=== PATIENT | female | born 1955 | race Caucasian/White ===

== ENCOUNTER 2020-12-29 22:21 | Emergency (ER) | payer OTHER ==
[~2020-12-29] VITALS: Ht 162.6 cm; Wt 76.7 kg
== END 2020-12-30 00:41 | disposition home or self-care (01) ==
LOC: ED 22:21
DX: U07.1 COVID-19 (principal)
CPT/HCPCS: 71045; 99283-25; C9803; U0003

== ENCOUNTER 2021-01-04 18:26 | Inpatient (IN) | payer OTHER ==
[~2021-01-04] VITALS: Ht 162.6 cm; Wt 77.2 kg
--- OUTSIDE RECORDS SUMMARY | 2021-01-04 18:34 | XMS ---
PreManage Notification: ROSALEE FREEDMAN Security Brand Attendant Events No recent Security Events currently on file CRITERIA MET - [facility] - 2 Visits in 30 Days CARE PROVIDERS There are no care providers on record at this time. Tamir has no Care Guidelines for this patient. [place] [facility] COUNT (12 MO.) [facility] T[facility] NOTE: Visits indicate total known visits. [place].) [facility] 18[facility] COMPLAINT: - FLU SYMPTOMS 12/29/2020 22:22 [facility] [place] TYPE: Emergency COMPLAINT: - COUGH,FEVER DIAGNOSES: - COVID-19 - Cough INPATIENT VISIT TRACKING (12 MO.) No inpatient visits to display in this time frame [id number]
--- NOTE | 2021-01-04 23:27 | NUR ---
pt ARRIVES TO [facility] VIA STRETCHER. RESTING IN BED. pt DENIES PAIN, DENIES NAUSEA AT THIS TIME. ORIENTATION TO ROOM PROVIDED. ASSESSMENT COMPLETE. CRACKLES AUSCULTATED THROUGHOUT LUNG LOBES. EDUCATION PROVIDED FOR PRONING, pt VERBALIZES UNDERSTANDING. IV SITE FLUSHED WNL AND IVF INFUSING ORDERED. OUT OF HOSPITAL AT THIS TIME, INSTRUCTED ON HOPSITAL VISITING POLICY, AGGREABLE, PROVIDED WITH MS BUSINESS CARD. CALL LIGHT PROVIDED TO pt.
--- NOTE | 2021-01-05 00:06 | NUR ---
IN pt ROOM FOR MEDICATION ADMINISTRATION. IV REMDESIVIR INFUSING WNL ORDERED. SBA TO RESTROOM FOR VOID, ATTENDS ON. 2L OXYGEN BY WA NOW IN PLACE. pt BACK IN BED, WEAK, STATES "THAT TOOK A LOT OUT OF ME". GAIT STEADY WITH AMBULATION. LIGHTS OFF IN ROOM. CALL LIGHT IN REACH.
--- NOTE | 2021-01-05 00:57 | NUR ---
SPO2 87-88% WITH 2L OXYGEN BY NC IN PLACE. pt SLEEPING. TITRATED TO 3L OXYGEN BY NC, SPO2 INCREASES TO 91%. BREATHING UNLABORED. pt RESTING ON LEFT SIDE WITH EYES CLOSED.
--- NOTE | 2021-01-05 01:55 | NUR ---
CHECKED ON pt. RESTING IN BED WITH EYES CLOSED, BREATHING UNLABORED. SPO2 92%, HR 75 ON TELE 3.
--- NOTE | 2021-01-05 04:10 | NUR ---
SPO2 85-86% ON TELE 3, pt AWAKENS TO VOICE RN ENTERS ROOM. TITRATED OXYGEN TO 6L BY NC, SPO2 <90, pt ABLE TO PRONE INSTRUCTED, OXYMASK WITH 6L OXYGEN IN PLACE. SPO2 INCREASES TO 92%. ASSESSMENT COMPLETE. CRACKLES AUSCULTATED BILATERALLY IN BASES. VS COMPLETE. CALL LIGHT IN REACH.
--- NOTE | 2021-01-05 06:56 | NUR ---
pt RESTING IN BED, SPO2 93% WITH 6L OXYGEN BY OXYMASK IN PLACE. TOWERMAN SINTA IN ROOM TO ASSESS TOILETING NEEDS.
--- NOTE | 2021-01-05 07:11 | NUR ---
SBA TO THE BATHROOM AND BACK TO BED. NO OTHER NEEDS AT THIS TIME.
--- NOTE | 2021-01-05 07:30 | NUR ---
IN ROOM WITH JOE REYES FOR REPORT AND CHANGE OUT BAG ON IVF. PT LAYING ON BACK INITIALLY AND EXPLAINED THAT SIDE OR PRONE IS THE BEST POSTION FOR VENTILATION. PT MOVED TO PRONE. SATS LOW 90'S ON 6L OXY MASK. DENIES CONCERNS ATT.
--- NOTE | 2021-01-05 08:31 | NUR ---
Got breakfast order. gave warm washcloth to pt to wash her face. updated whiteboard. IV pump was beeping, reported to JOE Motley. gave pt chicken broth, beef broth, orange jello, and apple juice. placed tray over pt. call light was within reach. no further assistance needed.
--- NOTE | 2021-01-05 09:19 | NUR ---
IN ROOM WITH DR ARDON. PT LAYING ON BACK, SATS 86-89. BUMPED UP TO 8L OXY AND SATS IMPROVED TO 91. PT STATES HER COUGH IN MINIMAL AND NONPRODUCTIVE. INTERMINTENT NAUSEA, SLIGHT HEADACHE. ADMINSITERED TYLENOL AND EDUCATED ON LOVENOX. PT AGREED TO SIDE LAY AND ASSISTED TO ROLL. LUNGS HAVE FINE CRACKLES WITH OCCASIONAL WHEEZE.
--- NOTE | 2021-01-05 10:45 | NUR ---
TOOK TOLLIVER INTO ROOM. PT PRONING WITH MASK RESIDENTIAL OFF HER FACE. SATS IN LOW 90'S.
--- NOTE | 2021-01-05 12:00 | NUR ---
Pt lives with spouse in a 1 story home without steps in [place]. Son lives in house up the street. Spouse is covid +, but starting to feel better. Pt states she is extremely active and in good health. Pt states son has been assisting them as needed while they have covid. Pt recently returned to [facility] and does not have pcp. Would like to establish care with [facility]. I will contact. She w would prefer a female and I will request Dr. Tsai. Pt may need to dc with 02 and she would prefer [facility] for her DME. Pt plans to dc to home with spouse and assist from son when cleared by hospitalist.
--- NOTE | 2021-01-05 12:25 | NUR ---
administered scheduled med. pt states she is feeling much better and the tylenol helped a lot. 7L joan sats low 90's
--- NOTE | 2021-01-05 12:53 | NUR ---
MED REC COMPLETE
--- NOTE | 2021-01-05 13:01 | NUR ---
PT SITTING UP IN BED EATING LUNCH. NC IN PLACE FOR EASE OF EATING. SATS 93. PT STATES SHE WILL CALL AFTER SHE IS DONE AND GET UP FOR RESTROOM AND THEN PRONING.
--- NOTE | 2021-01-05 13:08 | NUR ---
FAce sheet H&P faxed to Ana at [facility] requesting appt. for pt to establish care. Pts Pharmacy is [facility].
--- NOTE | 2021-01-05 14:23 | NUR ---
PT LAYING ON SIDE TALKING ON PHONE. DELIVERED MORE TOLLIVER TO ROOM. FIXED TELE STICKERS.
--- NOTE | 2021-01-05 17:17 | NUR ---
PT SITTING UP IN BED EATING DINNER. VS ASSESSED. WILL GET UP TO RESTROOM SOON SHE IS DONE EATING.
--- NOTE | 2021-01-05 18:04 | NUR ---
ASSISTED PT TO THE BSC IN THE RESTROOM HER O2 WILL NOT REACH THE TOILET. PT DENIES SOB, BUT SATS AT 89. TURNED UP TO 8LNC. CHANGED GOWN AND DEPENDS AND BACK INTO BED FOR PRONING. PT TEXTING IN THE ED AND WORRIED ABOUT HIM.
--- NOTE | 2021-01-05 19:30 | NUR ---
REPORT RECEIVED FROM JOE BEVERLY. SPO2 84-86% ON TELE 3. RN RUSH IN ROOM. pt NOW LYING ON SIDE. 8L OXYGEN BY HIGH FLOW NC IN PLAE, SPO2 INCREASES TO 92%. CALL LIGHT IN REACH.
--- NOTE | 2021-01-05 22:04 | NUR ---
RN AND RT IN ROOM. SPO2 85%, BIPAP APPLIED BY RT AT THIS TIME, 80% FI02. SPO2 INCREASES TO MID 90S ON TELE CPOX. ASSESSMENT COMPLETE. pt ASSISTED TO SIDE LYING POSITION. pt DENIES PAIN, DENIES SOB. CALL LIGHT WITHIN REACH. TRAY TABLE CLEARED.
--- NOTE | 2021-01-05 22:50 | NUR ---
CALL LIGHT ANSWERED. BIPAP REMOVED REQUESTED pt NOT TOLERATING STATES "I CANT EVEN WEAR A HELMET WITH THE STRAP ON MY FACE". 10 OXYGEN HIGH FLOW NC APPLIED, SPO2 87%, TITRATED TO 12L 02 HIGH FLOW NC, SPO2 90-91%. pt LYING ON SIDE. TAKING DRINKS OF WATER. DENIES TOILETING NEEDS. IVF INFUSING WNL ORDERED. CALL LIGHT IN REACH. RT NOTIFIED AT THIS TIME.
--- NOTE | 2021-01-06 01:02 | NUR ---
CHECKED ON pt. RESTING IN BED ON SIDE. SPO2 96% WITH 12L OXYGEN BY HIGH FLOW NC IN PLACE, HR 71 ON TELE 3.
--- NOTE | 2021-01-06 02:22 | NUR ---
IN TO CHECK ON pt. LYING ON LEFT SIDE AT THIS TIME. 12 L OXYGEN BY HIGH FLOW NC IN PLACE, SPO2 97%. BREATHING IS UNLABORED. LIGHTS OFF IN ROOM. IVF INFUSING.
--- NOTE | 2021-01-06 05:05 | NUR ---
IN pt ROOM SPO2 79% WITH 12 L OXYGEN BY NC IN PLACE. pt RESTING IN BED, STATES "I JUST SAT UP FOR A SECOND TO HAVE A DRINK OF WATER." ASSISTED TO BSC AND BACK TO BED. SPO2 DROPS TO 69% WITH SHORT AMBULATION TO BSC FOR VOID. pt TITRATED TO 15 L OXYGEN TO MAINTAIN SATURATIONS >90% AND BACK TO 14 L AT THIS TIME, SPO2 90%. RT LILY IN ROOM. NO CRACKLES AUSCULATED, pt COUGHING WITH DEEP BREATHING. DRY COUGH. ASSESSMENT COMPLETE. pt NOW LYING IN PRONE POSITION INSTRUCTED. EYES CLOSED. CALL LIGHT WITHIN REACH. LIGHTS OFF IN ROOM.
--- NOTE | 2021-01-06 05:31 | NUR ---
SPO2 NOW 95% ON 14L OXYGEN BY HIGH FLOW NC ON TELE 3, HR 68. pt CONTINUES TO REST IN PRONE POSITION.
--- NOTE | 2021-01-06 07:35 | NUR ---
SHIFT REPORT FROM AMY DIAZ, PT SIDE LYING ON LEFT SIDE DOING SOMETHING ON CELL PHONE, NO DISTRESS NOTED ON VISUAL. PT IS ON 14L HIGH FLOW OXYGEN SATURATION 93% AT THIS TIME.
--- NOTE | 2021-01-06 08:00 | NUR ---
Received call from Ana at [facility], Dr. Tsai will accept this pt to establish care. Appt. made for January 15 at 3:50pm. Added to dc instructions and Guadalupe updated.
--- NOTE | 2021-01-06 08:57 | NUR ---
PT REPORTS ALL OVER ACHE/PAIN, MOTRIN GIVEN PO PRN AT THIS TIME. V/S STABLE, NO URINE OUT SINCE SHIFT CHANGE. ASSESSMENT COMPLETE PT HAS CRACKLES THROUGHOUT MORE SIGNIFICANT ON LEFT, PT IS SIDE LYING ON THE LEFT SIDE.
--- NOTE | 2021-01-06 09:06 | NUR ---
VAPO THERM INITIATED, UPDATED CHARGE NURSE ON PT NOT VOIDING SINCE SHIFT CHANGE
--- NOTE | 2021-01-06 09:55 | NUR ---
REPORT RECEIVED BY JOE GOMEZ ON PT. WILL CONTINUE PLAN OF CARE WHEN PT ARRIVES TO CCU.
--- NOTE | 2021-01-06 11:00 | NUR ---
PT ARRIVED TO THE CCU AT 1015, PT WAS AWAKE AND ALERT AND ON HIGHFLOW NC. PT BROUGHT VIA BED BY JOE DELAROSA AND 2 JEWEL DIAM[employer]ER GAUGER'S WITH HER BELONGINGS. PT PUT BACK ON VAPOTHERM ONCE SITUATED IN THE ROOM. VAPOTHERM SETTINGS WERE AT 35 LPM FIO2 AT 80%. VITALS TAKEN AT THIS TIME, IV ASSESSED AND WAS PATENT. PT ALERT AND ORIENTED X 3, REPORTS NO NAUSEA, DENIES HAVING PAIN, AND IS AFEBRILE. PT LUNGS ARE COARSE THROUGHOUT WITH CRACKLES PRESENT IN BASES. JOE RODGERS IN TO ASSIST WITH PT AND PLACE A MORALEZ CATHETER 16 FR. URINE RETURN NOTED (SEE CHART). IVF STOPPED AFTERWARDS PER EMAR. PT REPORTS OCCASIONAL SOB AND IS NOTED TO DESATURATE TO 88-89% WHEN DRINKING WATER. LITER FLOW INCREASED TO 40LPM ON VAPOTHERM, FIO2 STILL AT 80%. PT REPOSITIONED IN BED WITH THE HELP OF JOE RODGERS. PT REPORTS NO FURTHER NEEDS AT THIS TIME AND IS NOW SITTING UP SEMI-FOWLERS IN BED AWAKE AND ALERT. WILL CONTINUE PLAN OF CARE. CALL LIGHT IN REACH, BED IN LOWEST POSITION.
--- NOTE | 2021-01-06 11:25 | NUR ---
DR. ARDON UPDATED ON PT, VBG ORDERED, WILL CONTINUE PLAN OF CARE.
--- NOTE | 2021-01-06 12:18 | NUR ---
THIS RN IN TO ASSESS PT, DRAW LABS, AND ADMINISTER ORDERED MEDICATIONS. PT LAYING IN BED ON LEFT SIDE, VAPOTHERM ON AT PREVIOUS SETTINGS 40LPM, 80% FIO2. PT UPDATED ON PLAN OF CARE, IV INSERTION, AND LAB DRAW. 20G IV INSERTED IN RIGHT AC PER PROTOCOL. VBG DRAWN OFF OF NEW IV AND IV SALINE LOCKED PT TOLERATED PROCEDURE WELL. PT SAT UP AT THIS TIME AND ASSESSED. LUNGS COARSE IN UPPER LOBES AND DIMINISHED WITH CRACKLES IN LOWER LOBES BILATERALLY. PT STATES HER BREATHING HAS IMPROVED AND REPORTS NO SHORTNESS OF BREATH, RR AT 20. PT NOW SITTING UP IN BED SEMI-FOWLERS EATING HER LUNCH. SCHEDULED MEDICATION ADMINISTERED AT THIS TIME (SEE AUG). PT REPORTS NO FURTHER NEEDS AT THIS TIME, WILL CONTINUE PLAN OF CARE. CALL LIGHT IN REACH, BED IN LOWEST POSITION.
--- NOTE | 2021-01-06 14:35 | NUR ---
THIS RN IN TO CHECK ON PT. PT LAYING ON RIGHT SIDE RESTING ON THE VAPOTHERM AT 40 LPM, 80% FIO2. SPO2 AT 93-95%. PT ALERT AND ORIENTED AND DENIES SHORTNESS OF BREATH STATING HER BREATHING FEELS BETTER. FIO2 TURNED DOWN FROM 80 TO 75% AT THIS TIME. PT GIVEN WATER PER HER REQUEST AND DINNER ORDERED. PT REPORTS NO FURTHER NEEDS AT THIS TIME, WILL CONTINUE PLAN OF CARE. PT BACK TO A RIGHT SIDE LYING POSITION ON THE BED SPO2 94% ON THE NEW VAPOTHERM SETTINGS. CALL LIGHT IN REACH, BED IN LOWEST POSITION.
--- NOTE | 2021-01-06 16:50 | NUR ---
THIS RN IN TO ASSESS PT AND ADMINISTER SCHEDULED MEDICATION. PT LAYING ON RIGHT SIDE ON VAPOTHERM AT 40LPM, 75% FIO2. PT ALERT AND ORIENTED X 3 AND DENIES HAVING SHORTNESS OF BREATH, PT STATES HER BREATHING HAS SEEMED TO IMPROVE SINCE THE MORNIN. PT FIO2 TURNED DOWN TO 70% AT THIS TIME. SCHEDULED IV MEDICATION NOW INFUSING ORDERED (SEE MAR). PT REPORTS NO FURTHER NEEDS AT THIS TIME WHEN ASKED, WATER PROVIDED TO PT. PT NOW SITTING SEMI-FOWLERS IN BED ON THE PHONE. SPO2 MAINTAINING AT 93%, RR AT 16, WHILE ON 40LPM, 70% FIO2. CALL LIGHT IN REACH, BED IN LOWEST POSITION, WILL CONTINUE PLAN OF CARE.
--- NOTE | 2021-01-06 17:21 | NUR ---
THIS RN IN TO BRING PT HER DINNER. PT ALERT AND ORIENTED AND SAT UP IN BED SEMI-FOWLERS TO EAT. WHILE EATING PT BEGAN TO DESATURATE AND STAYED AT 85%. FIO2 ON VAPOTHERM INCREASED FROM 70% TO 80% TO MAINTAIN SATURATIONS. PT NOW EATING DINNER, SPO2 AT 90%, WILL CONTINUE PLAN OF CARE. PT REPORTS NO FURTHER NEEDS WHEN ASKED. CALL LIGHT IN REACH, BED IN LOWEST POSITION, PT EATING DINNER.
--- NOTE | 2021-01-06 17:50 | NUR ---
THIS RN IN TO SALINE LOCK PT. PT SITTING UP IN BED AWAKE AND ALERT ON VAPOTHERM. PT DENIES HAVING SOB AT THIS TIME, SPO2 94%. VAPOTHERM TURNED BACK DOWN FROM 80% FIO2 TO 70% FIO2. PT VAPOTHERM NOW AT 40LPM, 70% FIO2. PT SPO2 MAINTAINING AT 94%. IV REMDESEVIR COMPLETE, PT SALINE LOCKED. PT REPORTS NO FURTHER NEEDS AT THIS WHEN ASKED, WILL CONTINUE PLAN OF CARE. CALL LIGHT IN REACH, BED IN LOWEST POSITION.
--- NOTE | 2021-01-06 19:45 | NUR ---
RECEIVED REPORT FROM [facility]. pt RESTING IN BED ON RIGHT SIDE. RESPIRATIONS REGULAR RATE 22. O2 SAT 94% ON VAPOTHERM 40L/70%. CALL LIGHT WITHIN REACH.
--- NOTE | 2021-01-06 21:32 | NUR ---
IN TO DO ASSESSMENT. pt DENIED PAIN AT THIS TIME. REPORTED FEELING "A LITTLE" SOB BUT IMPROVED FROM THIS AM. MEDICATIONS GIVEN (SEE MAR). MORALEZ CARE DONE, SOME LEAKAGE FROM MORALEZ, LINENS CHANGED. pt ABLE TO PRONE WITH ASSISTANCE WITH CABLES. O2 SAT HIGH 80'S WITH EXERTION ON 40L/100% VAPOTHERM. SATS SLOW TO INCREASE WITH REST. NO FURTHER REQUESTS AT THIS TIME. CALL LIGHT WITHIN REACH.
--- NOTE | 2021-01-06 21:52 | NUR ---
O2 SAT 99%, TITRATED VAPOTHERM TO 40L/85%. pt CONTINUES TO PRONE. CALL LIGHT WITHIN REACH.
--- NOTE | 2021-01-06 22:05 | NUR ---
O2 SAT 98%, TITRATED DOWN VAPOTHERM TO 40L/70%.
--- NOTE | 2021-01-07 00:13 | NUR ---
IN TO DO ASSESSMENT. pt WOKE TO VOICE, REPORTED GETTING SOME SLEEP. pt CURRENTLY ON LEFT SIDE. HAS BEEN REPOSITIONING SELF. NO CHANGES IN ASSESSMENT. CALL LIGHT WITHIN REACH. NO REQUESTS AT THIS TIME.
--- NOTE | 2021-01-07 02:52 | NUR ---
ROUNDED ON pt. PRONING. EYES CLOSED, RESPIRATIONS REGULAR AND UNLABORED. CALL LIGHT WITHIN REACH.
--- NOTE | 2021-01-07 04:36 | NUR ---
NOTED A DROP IN O2 SAT AFTER pt WAS HEARD COUGHING. IN TO ASSESS. VAPOTHERM TITRATED TO 40L/100%. LUNGS DIM, CRACKLES IN RIGHT BASE. pt DENIES INCREASED SOB AND PAIN. ASSESSMENT DONE. LABS DRAWN. NO NEEDS AT THIS TIME. CALL LIGHT WITHIN REACH.
--- NOTE | 2021-01-07 06:44 | NUR ---
ROUNDED ON pt. RESTING ON BACK. EYES CLOSED, RESPIRATIONS REGULAR AND UNLABORED. O2 SAT 95% ON 40L/100% VAPOTHERM. CALL LIGHT WITHIN REACH.
--- NOTE | 2021-01-07 08:37 | NUR ---
OXYGEN TITRATION ATTEMPTED - VAPOTHERM TURNED DOWN TO 40L/70% PT O2 SATS DECREASED TO MID TO LOW 80%, TRIAL FOR 10 MINUTES, THEN PT TURNED BACK UP TO 40L/100%.
--- NOTE | 2021-01-07 08:44 | NUR ---
PT WAKES EASILY, AND IS ALERT AND ORIENTED X4. PT REPORTS SOME GENERALIZED DISCOMFORT, 650 MG PO TYLENOL GIVEN. PT ORDERED AND WAS GIVEN BREAKFAST, AND IS ABLE TO TAKE MEDS EASILY. PT REPORTS SOME SLIGHT NAUSEA AND IS GIVEN 4 MG IV ZOFRAN. BILAT IV SITES ARE INTACT, FLUSHE EASILY, PT DENIES PAIN WITH FLUSH. PT REPORTS "I FEEL BETTER TODAY THAN I DID WHEN I FIRST CAME IN".
--- NOTE | 2021-01-07 10:21 | NUR ---
PT WAS ABLE TO TOLERATE PRONE POSTION AT LOWER FIO2 CURRENTLY ON VAPOTHERM 40L 80% SAT 95%
--- NOTE | 2021-01-07 12:30 | NUR ---
No change in plan for dc, pt remains on high flow 02.
--- NOTE | 2021-01-07 13:07 | NUR ---
PT ACTIVELY PRONING DOING REALLY WELL SAT HIGH 100% NOTED ON VAPOTHERM 40L 80%
--- NOTE | 2021-01-07 16:00 | NUR ---
PT WAS TRIALED ON BIPAP 16/8 RR12 FIO2 80% PATIENT WAS ABLE TO TOLERATE POSITIVE O2 RESPONSE WAS NOTED WITH SATS 93%, PT WAS PLACED BACK ON VAPOTHERM 40L 80% CURRENTLY SITTING IN CHAIR TOLERATING WELL
--- NOTE | 2021-01-07 20:00 | NUR ---
SHIFT REPORT RECEIVED FROM JOE PEDRAZA. ASSESSMENT COMPLETED AT THIS TIME. PT IS ALERT/ORIENTED, DENIES PAIN AT THIS TIME. LUNGS CLEAR, DIM IN BASES, DENIES SOB AT THIS TIME. VAPOTHERM IN PLACE AT 40L & 80%. HR REGULAR. BOWEL TONES ACTIVE. MORALEZ LEAKING, ADDITIONAL 5ML NS ADDED TO BALLOON, CATH CARE PROVIDED. PT PROVIDED WITH NEW GOWN AND SOCKS. PT AMBULATED FROM CHAIR TO BED, TOLERATED WELL. IV SITES INTACT, PATENT AND SALINE LOCKED. PT DENIES FURTHER REQUESTS AT THIS TIME, CALL LIGHT WITHIN REACH.
--- NOTE | 2021-01-07 22:19 | NUR ---
PT IS POSITIONED PRONED ON THE BED, APPEARS TO BE SLEEPING AT THIS TIME. VAPOTHERM SETTINGS UNCHANGED. VITAL SIGNS STABLE.
--- NOTE | 2021-01-07 22:39 | NUR ---
R.T. IN ROOM AT THIS TIME.
--- NOTE | 2021-01-08 00:43 | NUR ---
PT CONTINUES TO SLEEP AT THIS TIME, REMAINS PRONED. RESPIRATIONS APPEAR EVEN AND UNLABORED, VAPOTHERM SETTINGS UNCHANGED. MORALEZ EMPTIED. WILL ALLOW FOR REST AND CONTINUE TO MONITOR.
--- NOTE | 2021-01-08 02:17 | NUR ---
PT CONTINUES TO SLEEP, NO APPARENT DISTRESS, RESPIRATIONS EVEN AND UNLABORED. REMAINS PRONED, APPEARS TO HAVE REPOSITIONED MORE ONTO RIGHT SIDE. VAPOTHERM SETTINGS UNCHANGED.
--- NOTE | 2021-01-08 05:20 | NUR ---
ASSESSMENT COMPLETED AT THIS TIME. PT WAS SLEEPING, BUT WOKE EASILY WHEN SPOKEN TO. PT DENIES PAIN, SOB, AND NAUSEA. LUNGS REMAIN CLEAR/DIM, VAPOTHERM SETTINGS UNCHANGED. MORALEZ EMPTIED. BLOOD DRAWN FROM IV FOR MORNING LABS. PT DENIES NEEDS AT THIS TIME, CALL LIGHT WITHIN REACH.
--- NOTE | 2021-01-08 07:30 | NUR ---
FULL REPORT RECIEVED FROM JOURDAN DIAZ.
--- NOTE | 2021-01-08 08:00 | NUR ---
PT SLEEPING SOUNDLY AT THIS TIME WITH VAPOTHERM IN PLACE, PT ON HER LEFT SIDE. ALL VITALS WNL.
--- NOTE | 2021-01-08 09:30 | NUR ---
PT SLEEPING WHEN THIS RN FIRST ENTERS THE ROOM, ABLE TO TITRATE VAPOTHERM FROM 40L/80% TO 40L/65% PT O2 SATS 95-99%. ONCE PT WAKES AND REPOSITIONS HERSELF TO A SITTING POSITION O2 REQUIREMENT INCREASED TO 40L/75% WITH VAPOTHERM. PT REPORTS SOME GENERALIZED PAIN 09/19, 650 MG PO TYLENOL GIVEN. PT IS ALERT AND ORIENTED X4 THIS MORNING. ALL VITALS ARE WNL. PT DRINKING AN ENSURE FOR BREAKFAST. ORAL CARE SUPPLIES PROVIDED WITHIN PT REACH. BOTH IV SITES ARE INTACT, NO REDNESS OR SWELLING NOTED, FLUSH EASILY, PT DENIES PAIN AT EITHER SITE. ICE WATER REFRESHED, PT HAS CALL LIGHT WITHIN REACH.
--- NOTE | 2021-01-08 12:55 | NUR ---
PT IS AWAKE AND ALERT X4. PT REPORTS SHE IS READY TO SIT UP IN THE CHAIR, PT IS A LIGHT STANDBY ASSIST. PT DENIES PAIN, NAUSEA, AND SOB AT THIS TIME. PT HAS ORDERED LUNCH AND IT IS DELIVERED. ALL LINENS CHANGED ON THE BED. ICE WATER REFRESHED. ALL VITAL SIGNS ARE WNL. IV SITES ARE INTACT, FLUSH EASILY, NO REDNESS OR SWELLING NOTED, PT DENIES PAIN AT EITHER SITE. PT HAS CALL LIGHT WITHIN REACH.
--- NOTE | 2021-01-08 16:22 | NUR ---
NO CHANGE OR UPDATE ON DISCHARGE PLAN. PATIENT REMAINS TOO ILL TO LEAVE ICU.
--- NOTE | 2021-01-08 17:50 | NUR ---
PT REMAINS UP IN THE CHAIR, AND REPORTS SHE WOULD LIKE TO STAY THERE FOR NOW. PT IS ALERT AND ORIENTED X4. 4/10 GERERALIZED PAIN REPORTED BY PT, 650 MG PO TYLENOL. PT HAS ORDERED DINNER AND IT IS DELIVERED. PT REFUSED BEDBATH TODAY, BUT HAIR BRUSHED OUT AND BRAIDED. BOTH IV SITES ARE INTACT, NO REDNESS OR SWELLING NOTED, BOTH IV SITES FLUSH EASILY.
--- NOTE | 2021-01-08 20:09 | NUR ---
SHIFT REPORT RECEIVED FROM JOE PEDRAZA. ASSESSMENT COMPLETED. PT IS SITTING UP IN CHAIR, DENIES PAIN. LUNGS CLEAR WITH CRACKLES IN BASES, REPORTS MILD SOB AT REST, VAPOTHERM AT 40L & 75%. PRN TESSALON PERLES GIVEN. HR REGULAR, RATE IN 50'S. BOWEL TONES ACTIVE, DENIES NAUSEA. SKIN GROSSLY INTACT, NO EDEMA NOTED, CMS INTACT. IV SITES PATENT AND INTACT. EVENING MEDS GIVEN AT THIS TIME PER PT REQUEST. MORALEZ LEAKING, REMOVED PER PT REQUEST. PT PROVIDED OWN PERICARE AND NEW GOWN PROVIDED. PT NOW IN BED, DENIES FURTHER REQUESTS, CALL LIGHT WITHIN REACH.
--- NOTE | 2021-01-08 22:04 | NUR ---
PT RESTING IN BED, PRONE. VAPOTHERM SETTINGS UNCHANGED. VITAL SIGNS STABLE.
--- NOTE | 2021-01-08 22:55 | NUR ---
TITRATED VAPOTHERM FIO2 TO 65% FOR SPO2 OF 100%. PT HAS NOW VOIDED SINCE MORALEZ D/C, 500ML URINE EMPTIED FROM BSC. PT CONTINUES TO REST IN BED, PRONED.
--- NOTE | 2021-01-09 00:47 | NUR ---
PT CONTINUES TO SLEEP SOUNDLY IN PRONE POSITION. SPO2 99%, DECREASED FIO2 ON VAPOTHERM TO 55%. RESPIRATIONS EVEN AND UNLABORED, PT DOES NOT APPEAR TO BE IN ANY DISTRESS. WILL ALLOW FOR REST AND CONTINUE TO MONITOR.
--- NOTE | 2021-01-09 02:36 | NUR ---
PT SLEEPING ON RIGHT SIDE, NO APPARENT DISTRESS. VAPOTHERM SETTINGS UNCHANGED, VITAL SIGNS STABLE.
--- NOTE | 2021-01-09 04:22 | NUR ---
PT CALLED TO REQUEST WARM BLANKETS. PT GIVEN PRN TYLENOL FOR HEADACHE AND ROBITUSSIN FOR COUGH. LUNGS CONTINUE TO HAVE CRACKLES IN BASES, VAPOTHERM SETTINGS UNCHANGED. BSC EMPTIED OF 500ML URINE, REMAINS CLOUDY AND MALODOROUS. IV SITES REMAIN INTACT. FRESH ICE WATER PROVIDED. PT DENIES FURTHER REQUESTS, CALL LIGHT WITHIN REACH.
--- NOTE | 2021-01-09 06:07 | NUR ---
PT APPEARS TO BE SLEEPING AT THIS TIME, NO APPARENT DISTRESS, RESPIRATIONS EVEN AND UNLABORED. VITAL SIGNS STABLE. VAPOTHERM SETTINGS UNCHANGED.
--- NOTE | 2021-01-09 09:01 | NUR ---
pt is awake and alert x4. pt regusets to get up to the chair and requires very little assistance with cord management. pt reports "i feel better today". vapotherm titrated down to 12L/50% with O2 sats in the mid 90%. pt has breakfast and icewater has been refeshed. pt able to brush own teeth when given supplies. pt vitals are wnl, she denies chest pain. pt reports some sob, which has been present since hung Covid. resp rate is wnl, no work of breathing noted. both iv sites are intact, no redness or swelling noted, flush easily, pt denies pain with flush. pt able to use bedside commode independently. pt given 4 mg iv zofran for prevention of nausea.
--- NOTE | 2021-01-09 13:19 | NUR ---
pt remains alert and oriented x4, and is pleasant and cooperative. pt is sitting up in the chair, and reports that after eating lunch she would like to go back to bed for a nap. pt vitals are all wnl at this time. pt voiding QS amounts into bedside commode. pt given 650 mg po Tylenol for generalized pain of 5/10. pt denies chest pain, nausea, and sob.
--- NOTE | 2021-01-09 18:20 | NUR ---
FULL REPORT GIVEN TO PARRISH DIAZ, PT IS TO TRANSFER TO MED/SURG ROOM 112. ALL QUESTIONS ANSWERED.
--- NOTE | 2021-01-09 18:29 | NUR ---
PT TRANSPORTED TO MS RM 112 NEXT TO HUSBANDS ROOM. PT TRANSPORTED ON STRETCHER W/O ISSUES.
--- NOTE | 2021-01-09 18:35 | NUR ---
PT MOVED TO ROOM 112 ON MED/SURG, ALL PERSONAL BELONGINGS WENT WITH HER.
--- NOTE | 2021-01-09 19:30 | NUR ---
RECEIVED REPORT FROM JOE GOMEZ. pt SITTING IN BED ON PHONE. NO REQUESTS AT THIS TIME. CALL LIGHT WITHIN REACH.
--- NOTE | 2021-01-09 21:05 | NUR ---
IN TO DO ASSESSMENT. pt REQUESTED PRN COUGH MEDS, GIVEN WITH SCHEDULED MEDICATION. pt REFUSED MELATONIN AT THIS TIME IT "HAS THE OPPOSITE EFFECT AND KEEPS ME AWAKE." pt ABLE TO USE BSC INDEPENDENTLY. DENIES SOB. LUNG SOUNDS CLEAR AT THIS TIME. pt ON 7L HIGH FLOW NC. NO FURTHER REQUESTS AT THIS TIME. CALL LIGHT WITHIN REACH.
--- NOTE | 2021-01-10 00:32 | NUR ---
ROUNDED ON pt. RESTING ON LEFT SIDE, O2 SAT 98%. CALL LIGHT WITHIN REACH.
--- NOTE | 2021-01-10 02:30 | NUR ---
IN TO REPLACE TELE BATTERY. pt AWAKE IN BED, PRONING, SATS HIGH 90'S. NO CHANGES IN ASSESSMENT. EMPTIED BSC WHICH pt HAS BEEN USING INDEPENDENTLY. PROVIDED WATER. NO FURTHER REQUESTS AT THIS TIME. CALL LIGHT WITHIN REACH.
--- NOTE | 2021-01-10 05:50 | NUR ---
LABS DRAWN. pt SITTING UP IN BED. BREAKFAST ORDERED. VITALS DONE. pt REPORTS FEELING FINE. NO FURTHER REQUESTS AT THIS TIME. CALL LIGHT WITHIN REACH.
--- NOTE | 2021-01-10 07:39 | NUR ---
REPORT RECIEVED. PT IN BED. TELE [address] HR 55, SPO2 96% ON 7L HIGH FLOW. CALL LIGHT IN REACH.
--- NOTE | 2021-01-10 09:35 | NUR ---
ASSESSMENT COMPLETED. PT SITTING UP IN CHAIR. 7L NC IN PLACE. SPO2 AT 98%. TITRATED TO 5L NC. SATURATIONS 95% NOW. PT DENEIS SOB OR PAIN. ATE 100% OF BREAKFAST. CALL LIGHT IN REACH. DENIES NEEDS.
--- NOTE | 2021-01-10 10:15 | NUR ---
PT SELF PRONING IN BED. 5L NC IN PLACE. SPO2 98% WHILE PRONING. CALL LIGHT IN REACH.
--- NOTE | 2021-01-10 12:00 | NUR ---
PT AMBULATED TO HUSBANDS ROOM NEXT DOOR TO EAT LUNCH TOETHER. TOLERATED WALK WELL. MONITOR IN PLACE. 97% ON 5L NC.
--- NOTE | 2021-01-10 14:38 | NUR ---
SET PT UP FOR INDEPENDENT SHOWER. PT TOELRATING WELL. BRUSHED TEETH. SPO2 STAYED ABOVE 92%.
--- NOTE | 2021-01-10 14:52 | NUR ---
TITRATED OXYGEN TO 4L NC. SPO2 AT 97%.
--- NOTE | 2021-01-10 17:00 | NUR ---
AMBULATED TO HUSBANDS ROOM FOR DINNER. TOLERATED WELL ON 4L NC.
--- NOTE | 2021-01-10 18:56 | NUR ---
AMBULATED BACK TO ROOM. 4L NC IN PLACE. CALL LIGHT IN REACH.
--- NOTE | 2021-01-10 19:10 | NUR ---
RECEIVED REPORT FROM JOE CISNEROS. pt SITTING UP IN BED. REQUESTED WATER AND SOMETHING FOR HEARTBURN. NIO ENTERED. CALL LIGHT WITHIN REACH.
--- NOTE | 2021-01-10 20:11 | NUR ---
IN TO DO ASSESSMENT. MEDICATIONS GIVEN (SEE MAR). pt REPORTED HEARTBURN WAS "GETTING BETTER" REFUSED MELATONIN IT KEEPS HER AWAKE. pt REPORTS FEELING STRONG ON HER FEET. DISCUSSED PRONING. ASSESSMENT DONE. NO FURTHER REQUESTS AT THIS TIME. CALL LIGHT WITHIN REACH.
--- NOTE | 2021-01-10 22:31 | NUR ---
pt INDEPENDENT IN ROOM. TELE 1, HR 66 O2 SAT 98%.
--- NOTE | 2021-01-11 00:18 | NUR ---
pt HR 60 O2 SAT 99% ON 4L NC PER TELE 1.
--- NOTE | 2021-01-11 02:05 | NUR ---
O2 SAT 97%, HR 56.
--- NOTE | 2021-01-11 04:00 | NUR ---
PER TELE 1 HR 56, O2 SAT 99%
--- NOTE | 2021-01-11 05:53 | NUR ---
IN TO DO ASSESSMENT. pt WOKE TO VOICE. REPORTED HAVING SLEPT "BETTER TONIGHT" NO CHANGES IN ASSESSMENT. LABS DRAWN. VITALS AND I&O RECORDED. TITRATED TO 3L O2 SATS 96%. CALL LIGHT WITHIN REACH.
--- NOTE | 2021-01-11 06:18 | NUR ---
TELE 1 SHOWS HR 52 AND SAT 97%
--- NOTE | 2021-01-11 07:31 | NUR ---
REPORT RECEIVED FROM GUY DIAZ. PT REPORTEDLY SLEPT WELL
--- NOTE | 2021-01-11 08:25 | NUR ---
PATIENT UP TO CHAIR FOR BREAKFAST, IND. CALL LIGHT IN REACH. NO FURTHER NEEDS AT THIS TIME.
--- NOTE | 2021-01-11 09:07 | NUR ---
SPOKE WITH PATIENT BY ROOM PHONE. SHE STATES SHE AND NEITHER HAVE OXYGEN AT HOME. SHE UNDERSTANDS THEY BOTH MAY NEED IT. SHE SAYS RT IS IN THE ROOM NOW TO DO TEST. SHE STATES THEY WOULD LIKE TO GO THROUGH [facility]. SHE STATES THEY KNOW THEY NEED TO CONTINUE QUARANTINE. THEIR SON PLANS TO PICK THEM UP, HE HAS ALREADY BEEN EXPOSED AND IS QUARATINED. SHE KNOWS OF NOTHING THEY NEED BEYOND OXYGEN.
--- NOTE | 2021-01-11 09:32 | NUR ---
PT SITTING IN CHAIR AFTER FINISHING BREAKFAST. STATES SHE IS FEELING MUCH BETTER TODAY AND DECLINED ANY PRN MEDS. LUNGS CLEAR. SATS 97% ON 3LNC, TURNED DOWN TO 2LNC. REFILLED WATER. ADMINISTERED MORNING MEDS. PT UP TO RESTROOM FOR ANOTHER DOSE OF DIAHRREA.
[2021-01-11] MEDS ORDERED: DEXAMETHASONE6 MG PO (09:51)
--- NOTE | 2021-01-11 10:21 | NUR ---
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 BP A LITTLE LOW, RN NOTIFIED. CALL LIGHT IN REACH. NO FURTHER NEEDS AT THIS TIME.
--- NOTE | 2021-01-11 10:41 | NUR ---
PT SITTING IN CHAIR. BP A LITTLE LOW BUT ASYMPTOMATIC. WILL RECHECK IN A BIT
--- NOTE | 2021-01-11 11:33 | NUR ---
WENT OVER DISCHARGE INSTRUCTIONS WITH PT. DENIED ANY ADDITIONAL QUESTIONS OTHER THAN WHEN COULD THEY LEAVE.
--- NOTE | 2021-01-11 11:41 | NUR ---
FAXED RT QUALIFIER, RX AND CLINICALS TO [facility]. FAX CONFIRMATION RECEIVED.
--- NOTE | 2021-01-11 12:22 | NUR ---
CEE HAS RECEIVED PAPERWORK AND WILL BE BRINGING PORTABLE TANK EARLY THIS AFTERNOON AND THEN DO SET UP AT HOME FOR THEM. STAFF UPDATED.
== END 2021-01-11 14:30 | disposition home or self-care (01) | DRG 177 ==
LOC: ED 18:26 → MS 18:28 → CCU 01-05 09:38 → MS 01-05 09:39 → CCU 01-06 10:15 → MS 01-06 14:02 → CCU 01-06 14:05 → MS 01-09 18:30
PROVIDERS: ADMIT Student in an Organized Health Care Education/Training Program; ATTEND Student in an Organized Health Care Education/Training Program
PROC: 8E0ZXY6 Isolation (ICD-10-PCS; principal; 2021-01-05)
PROC: XW033E5 Introduction of Remdesivir Anti-infective into Peripheral Vein, Percutaneous Approach, New Technology Group 5 (ICD-10-PCS; 2021-01-05)
PROC: 3E0333Z Introduction of Anti-inflammatory into Peripheral Vein, Percutaneous Approach (ICD-10-PCS; 2021-01-05)
DX: U07.1 COVID-19 (principal); J96.01 Acute respiratory failure with hypoxia; J12.82 Pneumonia due to coronavirus disease 2019
CPT/HCPCS: 71045; 80048; 80053; 81001; 82803; 83735; 84484; 85025; 94640; 94660; 94760; 94761; 94799; 96372; 96374; 96375; 99285-25; A9270; G0378; J1100; J1650; J2405; J7050; J7121; J8540

== ENCOUNTER 2022-12-25 08:55 | Emergency (ER) | payer OTHER ==
[~2022-12-25] VITALS: Ht 162.6 cm; Wt 80.0 kg
[~2022-12-25 08:55] MED LIST: DEXAMETHASONE6 MG PO
[2022-12-25] MEDS ORDERED: PREDNISONE20 MG PO (09:35)
[2022-12-25] MEDS ORDERED: ZYRTEC10 M3 PO (09:35)
[2022-12-25 09:46] VITALS: BP 147/75
== END 2022-12-25 09:47 | disposition home or self-care (01) ==
LOC: ED 08:55
DX: T63.461A Toxic effect of venom of wasps, accidental (unintentional), initial encounter (principal)
CPT/HCPCS: J1100; J1200